=== PATIENT | female | born 1970 | race Caucasian/White ===

== ENCOUNTER → 2024-02-19 | Outpatient (CLI) | payer OTHER | END | disposition home or self-care (01) | LOC: OIH 11:11 | PROVIDERS: ATTEND Student in an Organized Health Care Education/Training Program | DX: Z13.6 Encounter for screening for cardiovascular disorders (principal) | CPT/HCPCS: 75571 ==

== ENCOUNTER 2024-04-09 09:36 | Observation (INO) | payer OTHER ==
[2024-04-07 15:40] LABS: BASOPHILS # (AUTO) 0.18 K/uL (0.00-0.20); BASOPHILS % (AUTO) 1.6 % (0.0-5.0); EOSINOPHILS # (AUTO) 0.54 K/uL (0.00-0.70); EOSINOPHILS % (AUTO) 4.7 % (0.0-8.0); HEMATOCRIT 44.3 % (36-48); IMMATURE GRANULOCYTE ABSOLUTE 0.03 K/uL (0-1); LYMPHOCYTES # (AUTO) 2.9 K/uL (1.0-4.8); LYMPHOCYTES % (AUTO) 25.7 % (21.0-51.0); MEAN CORPUSCULAR HEMOGLOBIN 33.3 pg (27.0-33.0); MEAN CORPUSCULAR HGB CONC 33.4 g/dL (32.0-36.0); MEAN CORPUSCULAR VOLUME 99.6 fL (79-99); MONOCYTES # (AUTO) 1.2 K/uL (0.1-1.0); MONOCYTES % (AUTO) 10.8 % (3.0-13.0); NEUTROPHILS # (AUTO) 6.5 K/uL (1.8-7.7); NEUTROPHILS % (AUTO) 56.9 % (40.0-77.0); PLATELET COUNT (AUTO) 279 K/uL (130-400); RED BLOOD CELL COUNT(AUTO) 4.45 MIL/uL (4.00-5.50); RED CELL DISTRIBUTION WIDTH 13.2 % (11.0-15.5); WHITE BLOOD COUNT (AUTO) 11.4 K/uL (4.8-10.8)
[2024-04-07 15:43] LABS: APPEARANCE,URINE CLEAR (CLEAR); BILIRUBIN,URINE NEGATIVE (NEGATIVE); COLOR,URINE LIGHT-YELLOW (YELLOW); GLUCOSE, URINE (UA) NEGATIVE (NEGATIVE); KETONES,URINE NEGATIVE (NEGATIVE); LEUKOCYTE ESTERASE ,URINE NEGATIVE Leu/uL (NEGATIVE); NITRATE,URINE NEGATIVE (NEGATIVE); OCCULT BLOOD,URINE NEGATIVE (NEGATIVE); PROTEIN,URINE 10 mg/dL (NEGATIVE); UROBILINOGEN,URINE 0.2 mg/dL (0.2-1.0)
[2024-04-07 15:44] VITALS: BP 115/54; PULSE 65; RESP 18
[2024-04-07 15:48] LABS: ADD UA MICROSCOPIC YES
[2024-04-07 15:49] LABS: HCG,QUALITATIVE URINE NEGATIVE (NEGATIVE); MUCUS,URINE RARE LPF (None Seen); RBC,URINE 0-1 /HPF (0-1); SQUAMOUS EPITHELIAL CELL,UR RARE /HPF (0-2)
[2024-04-07 15:52] LABS: ALBUMIN 3.7 g/dL (3.5-5.0); POTASSIUM 3.6 mmol/L (3.5-5.1)
[2024-04-07 16:07] LABS: INR 1.02 (0.85-1.15)
[2024-04-07 16:08] LABS: PARTIAL THROMBOPLASTIN TIME 25.9 SEC (26.3-35.5)
[2024-04-09] VITALS (35 sets, daily range): BP systolic 105–148; BP diastolic 56–98; PULSE 52–81; RESP 11–18; O2SAT 95–98
[~2024-04-09] VITALS: Ht 154.9 cm; Wt 77.4 kg
[2024-04-09] MEDS: ceFAZolin SODIUM 2 GM VIAL ONE (09:44)
[2024-04-09] MEDS: LACTATED RINGERS 1000ML 1,000 ML IV ONE (09:45)
[2024-04-09 10:20] LABS: AMPHET/METH SCREEN,URINE NEGATIVE (NEGATIVE); BARBITURATE SCREEN, URINE NEGATIVE (NEGATIVE); BENZODIAZEPINES SCREEN,URINE NEGATIVE (NEGATIVE); CANNABINOID SCREEN,URINE POSITIVE (NEGATIVE); COCAINE SCREEN,URINE NEGATIVE (NEGATIVE); OPIATE SCREEN,URINE POSITIVE (NEGATIVE); PHENCYCLIDINE SCREEN,URINE NEGATIVE (NEGATIVE)
[2024-04-09] MEDS: acetaMINOPHEN 1,000 MG/100 ML VIAL IV ONE (10:42)
[2024-04-09] MEDS: FAMOTIDINE 20MG VIAL IV ONE (10:43)
[2024-04-09] MEDS ORDERED: KETAMINE 50MG/ML SYRINGE 50 MG/ML DISP.SYRIN ONE (10:44)
[2024-04-09] MEDS ORDERED: ROPivacaine 0.5% 5MG/ML 30ML ONE (10:44)
[2024-04-09] MEDS ORDERED: LIDOCAINE PF 100MG/5ML (2%) SYRINGE 5ML ONE (10:45)
[2024-04-09] MEDS ORDERED: ROCURONIUM BROMIDE 10MG/1ML 5ML VL ONE (10:46)
[2024-04-09] MEDS ORDERED: PROPOFOL 10 MG/ML 20ML VIAL IV ONE (10:46)
[2024-04-09] MEDS ORDERED: FENTANYL CITRATE PF 50 MCG/1 ML 2ML VIAL ONE (10:46)
[2024-04-09] MEDS ORDERED: GABA300S3 PO (11:00)
[2024-04-09] MEDS ORDERED: TRAZ-187 PO (11:00)
[2024-04-09] MEDS ORDERED: LITH600C PO (11:00)
[2024-04-09] MEDS ORDERED: DOCU100T PO (11:00)
[2024-04-09] MEDS ORDERED: CITA40TA14 PO (11:00)
[2024-04-09] MEDS ORDERED: [UNRECOGNIZED DRUG - CODE] PO (11:00)
[2024-04-09] MEDS ORDERED: HYDR25CA PO (11:00)
[2024-04-09] MEDS ORDERED: LEVO100C4 PO (11:00)
[2024-04-09] MEDS ORDERED: OXYB5TAB20 PO (11:00)
[2024-04-09] MEDS ORDERED: ESCI20TA38 PO (11:00)
[2024-04-09] MEDS ORDERED: ACET-2079 PO (11:00)
[2024-04-09] MEDS: TRANEXAMIC ACID 1000MG/10ML ONE (11:18)
[2024-04-09] MEDS ORDERED: ONDANSETRON 4MG INJ ONE (11:37)
[2024-04-09] MEDS ORDERED: DEXAMETHASONE SOD PHOSPHATE 10MG/ML 1ML VIAL ONE (11:37)
[2024-04-09] MEDS: TRANEXAMIC ACID 1000MG/10ML IV ONE (11:40)
[2024-04-09] MEDS ORDERED: NEOSTIGMINE METHYLSULFATE 1MG/ML IV ONE (12:33)
[2024-04-09] MEDS ORDERED: GLYCOPYRROLATE 0.2 MG/ML 5 ML VIAL ONE (12:33)
[2024-04-09] MEDS: FENTANYL CITRATE PF 50 MCG/1 ML 2ML VIAL ONE ×2 (14:33→14:46)
[2024-04-09] MEDS ORDERED: POTASSIUM CHLORIDE 10% ELIXIR 20 MEQ/15 ML UDCUP PO PRN (15:00)
[2024-04-09] MEDS ORDERED: ONDANSETRON 4MG INJ IVP PRN (15:00)
[2024-04-09] MEDS ORDERED: KCL 20 MEQ ERTAB PO PRN (15:00)
[2024-04-09] MEDS ORDERED: CALCIUM CARB 500MG PO PRN (15:00)
[2024-04-09] MEDS ORDERED: FERROUS FUMARATE 324 MG TABLET PO PRN (15:00)
[2024-04-09] MEDS: KETOROLAC 15MG/ML VIAL (15MG/ML) IV SCH (15:00)
[2024-04-09] MEDS ORDERED: POTASSIUM CHLORIDE 20MEQ/100ML 100 ML IV PRN (15:00)
[2024-04-09] MEDS: ONDANSETRON 4MG INJ ONE (15:16)
[2024-04-09] MEDS: CYCLOBENZAPRINE HCL 10 MG TABLET PO PRN (16:03)
[2024-04-09] MEDS: LITHIUM CARBONATE 150 MG CAPSULE PO SCH (19:59)
[2024-04-09] MEDS: HYDROXYZINE 25 MG TABLET PO SCH (19:59)
[2024-04-09] MEDS: HYDROCODONE/ACETAMINOPHEN 5/325 MG TAB PO PRN (20:07)
[2024-04-09] MEDS: TRAZODONE HCL 100 MG TABLET PO SCH (20:17)
[2024-04-09] MEDS: OXYBUTYNIN CHLORIDE 5 MG TABLET PO SCH (20:18)
[2024-04-09] MEDS: GABAPENTIN 300 MG CAPSULE PO SCH (20:18)
[2024-04-09] MEDS: DOCUSATE SODIUM 100 MG CAP PO SCH (20:18)
[2024-04-09] MEDS: MELATONIN 5 MG TABLET PO SCH (20:18)
[2024-04-09] MEDS: ceFAZolin SODIUM 2 GM VIAL IVPB SCH (20:20)
[2024-04-09] MEDS: 0.9%NACL 1000ML 1,000 ML IV SCH (20:20)
[2024-04-09] MEDS: (Escitalopram Oxalate 20 MG) PO SCH (21:00)
[2024-04-09] MEDS: CITALOPRAM HYDROBROMIDE PO SCH (21:00)
[2024-04-09] MEDS: TRAMADOL HCL 50 MG TABLET PO PRN (22:43)
[2024-04-10 04:00] VITALS: BP 108/62; PULSE 60; RESP 18
[2024-04-10 04:37] LABS: MEAN CORPUSCULAR HEMOGLOBIN 33.1 pg (27.0-33.0); MEAN CORPUSCULAR HGB CONC 33.4 g/dL (32.0-36.0); MEAN CORPUSCULAR VOLUME 99.2 fL (79-99); RED BLOOD CELL COUNT(AUTO) 3.53 MIL/uL (4.00-5.50); RED CELL DISTRIBUTION WIDTH 13.4 % (11.0-15.5); WHITE BLOOD COUNT (AUTO) 15.7 K/uL (4.8-10.8)
[2024-04-10 04:48] LABS: CREATININE 0.9 mg/dL (0.5-1.0); POTASSIUM 3.9 mmol/L (3.5-5.1)
[2024-04-10] MEDS: LEVOTHYROXINE 100 MCG TABLET PO SCH (05:54)
[2024-04-10 07:58] VITALS: BP 104/43; PULSE 61; RESP 18
[2024-04-10 08:00] VITALS: O2SAT 95
[2024-04-10] MEDS: POLYETHYLENE GLYCOL 3350 17 GM POWD.PACK PO SCH (09:55)
[2024-04-10] MEDS: ASPIRIN 325MG EC TAB PO SCH (09:56)
[2024-04-10 11:15] VITALS: BP 110/58; PULSE 62; RESP 18
[2024-04-10 20:00] VITALS: O2SAT 98
[2024-04-10 20:25] VITALS: BP 105/64; PULSE 66; RESP 18
[2024-04-11 04:03] VITALS: BP 122/77; PULSE 64; RESP 18
[2024-04-11] MEDS: KETOROLAC 15MG/ML VIAL (15MG/ML) IV PRN (11:19)
[2024-04-11 11:33] VITALS: BP 152/79; PULSE 65; RESP 16
[2024-04-11 12:00] VITALS: O2SAT 100
[2024-04-11] MEDS ORDERED: HYDR-4060 PO (13:10)
[2024-04-11 20:00] VITALS: BP 105/54; PULSE 75; RESP 18
[2024-04-12] VITALS: BP 95/62; PULSE 70; RESP 18
[2024-04-12 04:00] VITALS: BP 105/50; PULSE 56; RESP 18
[2024-04-12 07:18] VITALS: BP 128/60; PULSE 62; RESP 18
[2024-04-12 11:00] VITALS: BP 106/67; PULSE 66; RESP 20
[2024-04-12] MEDS ORDERED: BisaCODYL 10 MG SUPP.RECT RC PRN (15:00)
== END 2024-04-12 20:10 | disposition left against medical advice (07) ==
LOC: DAH 09:36 → DAHIP 09:37 → 4AH 18:00
PROVIDERS: ADMIT Student in an Organized Health Care Education/Training Program; ATTEND Student in an Organized Health Care Education/Training Program
DX: M16.11 Unilateral primary osteoarthritis, right hip (principal); M25.551 Pain in right hip; Z79.899 Other long term (current) drug therapy; Z98.890 Other specified postprocedural states
CPT/HCPCS: 82040; 80048 ×2; 85025; 85610; 85730; 87086; 84134; 86140; 81001; 81025; 36415 ×2; 87641; 27130; 64450; 96365; 96375; 80305; 73503; 73521; 97161; 97116 ×8; 97530 ×13; 96376 ×3; 96366; 85027; G0378 ×71; A4663; J7120 ×2; C1776; A4600; J3490 ×6; J3010 ×3; J1100; J2001; J2704; J2405 ×2; J2710; J2795; J1885 ×7; J0690 ×4; A4649 ×2; A6219; G0168; A6255; A4215; A4223; A4222; A4221